=== PATIENT | male | born 1945 | race Caucasian/White ===

== ENCOUNTER 2023-10-21 19:36 | Emergency (ER) | payer OTHER, MEDICARE ==
[~2023-10-21] VITALS: Ht 193 cm; Wt 79.2 kg
[2023-10-21 19:46] VITALS: TEMP 97.8
[2023-10-21] MEDS: haloperidol lactate 5mg/ml inj IM ONE (23:19)
[2023-10-21] MEDS: haloperidol lactate 5mg/ml inj ONE (23:19)
[2023-10-22 00:30] VITALS: BP 96/74; PULSE 67; RESP 18; O2SAT 96
== END 2023-10-22 00:35 | disposition hospice, inpatient (51) ==
LOC: ER 19:37
DX: I60.8 Other nontraumatic subarachnoid hemorrhage (principal); F03.90 Unspecified dementia, unspecified severity, without behavioral disturbance, psychotic disturbance, mood disturbance, and anxiety; W18.39XA Other fall on same level, initial encounter; Y93.89 Activity, other specified; Y92.89 Other specified places as the place of occurrence of the external cause; Y99.8 Other external cause status
CPT/HCPCS: 70450; 72125; 96372; 99291; 99292; J1630

== ENCOUNTER 2023-11-30 17:04 | Emergency (ER) | payer OTHER, MEDICARE ==
[~2023-11-30] VITALS: Ht 182.9 cm; Wt 85.0 kg
--- NOTE | 2023-11-30 18:16 | NUR ---
LEFT VM ON SHRUTHI'S DAUGHTER PHONE TO CALL BACK AND SPEAK WITH DOCTOR LONI FOR TREATMENT
--- NOTE | 2023-11-30 18:32 | NUR ---
ON PHONE WITH PATIENTS FAMILY ABOUT CT SCAN IMPRESSION
--- NOTE | 2023-11-30 20:58 | NUR ---
BREAKING PRIMARY RN. CALLED [facility] AND GAVE REPORT TO HOSPICE NURSE, STEPHANY, WHO TOLD ME FAMILY WAS NEXT TO HER AND AGREEABLE TO PLAN OF DISCHARGING PT BACK TO [facility]. GAVE REPORT TO [facility] WHO PICKED PT UP.
[2023-11-30 21:40] VITALS: BP 110/71; PULSE 72; RESP 16; TEMP 98.2; O2SAT 94
== END 2023-11-30 21:00 | disposition home or self-care (01) ==
LOC: ER 17:04
DX: S01.01XA Laceration without foreign body of scalp, initial encounter (principal); F03.90 Unspecified dementia, unspecified severity, without behavioral disturbance, psychotic disturbance, mood disturbance, and anxiety; W18.39XA Other fall on same level, initial encounter; Y93.89 Activity, other specified; Y92.89 Other specified places as the place of occurrence of the external cause; Y99.8 Other external cause status
CPT/HCPCS: 12002; 70450; 72125; 99284